=== PATIENT | female | born 1985 | race Two or more races ===

== ENCOUNTER 2019-07-02 03:51 | Emergency (ER) | payer MEDICAID ==
[~2019-07-02] VITALS: Ht 160 cm; Wt 78.0 kg
[2019-07-02] MEDS ORDERED: ondansetron 4mg rapidly disintigrating tab PO ONE (04:30)
[2019-07-02 04:59] LABS: BASOPHILS % (AUTO) 0.3 % (0-1); EOSINOPHILS # (AUTO) 0.1 X10'3 (0-0.9); EOSINOPHILS % (AUTO) 1.2 % (0-6); HEMATOCRIT 40.7 % (35.0-45.0); HEMOGLOBIN 14.1 g/dl (12.0-16.0); LYMPHOCYTES # (AUTO) 1.8 X10'3 (1.1-4.8); LYMPHOCYTES % (AUTO) 18.2 % (21-51); MEAN CORPUSCULAR HEMOGLOBIN 30.8 PG (27.0-31.0); MEAN CORPUSCULAR HGB CONC 34.6 g/dL (33.0-36.5); MEAN CORPUSCULAR VOLUME 88.9 FL (78-98); MEAN PLATELET VOLUME 7.7 FL (7.4-10.4); MONOCYTES # (AUTO) 0.4 X10'3 (0-0.9); MONOCYTES % (AUTO) 3.9 % (2-12); NEUTROPHILS # (AUTO) 7.5 X10'3 (1.8-7.7); NEUTROPHILS % (AUTO) 76.4 % (42-75); PLATELET COUNT 236 X10'3 (140-440); RED BLOOD COUNT 4.58 X10'6 (4.20-5.60); RED CELL DISTRIBUTION WIDTH 14.3 % (11.5-14.5); WHITE BLOOD COUNT 9.9 X10'3 (4.5-11.0)
[2019-07-02 05:13] LABS: CLARITY,URINE CLEAR (Clear); COLOR,URINE YELLOW (Yellow); GLUCOSE, URINE NEGATIVE (Neg); KETONES,URINE NEGATIVE (Neg); LEUKOCYTE ESTERASE ,URINE NEGATIVE (Neg); NITRITES, URINE NEGATIVE (Neg); OCCULT BLOOD,URINE NEGATIVE (Neg); PROTEIN,URINE NEGATIVE (Neg); UA COLLECTION TYPE CLN CATCH MIDSTREAM; UROBILINOGEN,URINE 0.2 E.U/dL (0.2-1.0)
[2019-07-02 05:21] LABS: ALANINE AMINOTRANSFERASE 30 U/L (12-78); ALBUMIN 3.8 G/DL (3.4-5.0); ALBUMIN/GLOBULIN RATIO 1.4 (1.1-1.5); ALKALINE PHOSPHATASE 66 IU/L (46-116); ANION GAP 7 (8-16); ASPARTATE AMINO TRANSFERASE 17 U/L (10-37); BILIRUBIN,TOTAL 0.5 MG/DL (0.1-1.0); BLOOD UREA NITROGEN 14 MG/DL (7-18); BUN/CREATININE RATIO 21.9 (6.6-38.0); CALCIUM 8.4 MG/DL (8.5-10.1); CHLORIDE 106 MMOL/L (99-107); CREATININE 0.64 MG/DL (0.40-0.90); GLUCOSE 96 MG/DL (70-104); POTASSIUM 3.5 MMOL/L (3.5-5.1); SODIUM 139 MMOL/L (135-145); TOTAL CARBON DIOXIDE 25.7 MMOL/L (24-32); TOTAL PROTEIN 6.5 G/DL (6.4-8.2); eGFR > 90 ML/MIN
[2019-07-02] MEDS ORDERED: ONDA8TAB6 PO (05:25)
[2019-07-02 05:32] VITALS: BP 106/62
== END 2019-07-02 05:34 | disposition home or self-care (01) ==
LOC: ER 03:52
DX: E86.0 Dehydration (principal); B34.9 Viral infection, unspecified; J45.909 Unspecified asthma, uncomplicated; F12.90 Cannabis use, unspecified, uncomplicated; Z56.0 Unemployment, unspecified
CPT/HCPCS: 36415; 80053; 81003; 83735; 85025; 99283

== ENCOUNTER 2021-07-18 16:42 | Emergency (ER) | payer MEDICAID ==
[~2021-07-18] VITALS: Ht 160 cm; Wt 81.8 kg
[~2021-07-18 16:42] MED LIST: ONDA8TAB6 PO
[2021-07-18 17:05] VITALS: BP 125/83
== END 2021-07-18 22:31 | disposition home or self-care (01) ==
LOC: ER 16:43
DX: M25.572 Pain in left ankle and joints of left foot (principal); J45.909 Unspecified asthma, uncomplicated; F12.90 Cannabis use, unspecified, uncomplicated; Z72.89 Other problems related to lifestyle; Z79.899 Other long term (current) drug therapy
CPT/HCPCS: 73610; 93971; 99284

== ENCOUNTER 2022-06-08 15:49 | Emergency (ER) | payer MEDICAID ==
[~2022-06-08] VITALS: Ht 160 cm; Wt 80.0 kg
[2022-06-08 15:54] VITALS: BP 123/78
== END 2022-06-08 18:28 | disposition left against medical advice (07) ==
LOC: ER 15:49
DX: J00 Acute nasopharyngitis [common cold] (principal); Z53.21 Procedure and treatment not carried out due to patient leaving prior to being seen by health care provider

== ENCOUNTER 2022-08-06 01:33 | Emergency (ER) | payer MEDICAID ==
[~2022-08-06] VITALS: Ht 160 cm; Wt 83.3 kg
[2022-08-06 01:50] VITALS: BP 130/84
[2022-08-06] MEDS ORDERED: ketorolac trometh inj. 60 MG/2 ML VIAL IM ONE (04:10)
[2022-08-06] MEDS ORDERED: acetaminophen 325mg tablet PO ONE (04:10)
[2022-08-06] MEDS ORDERED: ACET-812 PO (04:11)
[2022-08-06] MEDS ORDERED: LIDO700A32 TOP (04:11)
[2022-08-06] MEDS ORDERED: IBUP-1984 PO (04:11)
== END 2022-08-06 04:30 | disposition home or self-care (01) ==
LOC: ER 01:34
DX: M54.2 Cervicalgia (principal); J45.909 Unspecified asthma, uncomplicated; F12.90 Cannabis use, unspecified, uncomplicated; Z72.89 Other problems related to lifestyle; Z79.899 Other long term (current) drug therapy; W18.39XA Other fall on same level, initial encounter; Y93.89 Activity, other specified; Y92.89 Other specified places as the place of occurrence of the external cause; Y99.8 Other external cause status
CPT/HCPCS: 96372; 99283; J1885

== ENCOUNTER 2023-11-04 20:04 | Emergency (ER) | payer MEDICAID ==
[~2023-11-04] VITALS: Ht 162.6 cm; Wt 90.0 kg
[~2023-11-04 20:04] MED LIST changes: +ACET-812 PO; +LIDO700A32 TOP
[2023-11-04 20:27] VITALS: BP 125/71; PULSE 102; TEMP 98; O2SAT 98
[2023-11-04 21:35] LABS: STREP A SCREEN NEGATIVE (Neg)
[2023-11-04] MEDS ORDERED: ketorolac trometh inj. 60 MG/2 ML VIAL IM ONE (21:40)
[2023-11-04] MEDS ORDERED: AMOX-580 PO (21:52)
[2023-11-04] MEDS: dexamethasone sod phosphate 10mg/ml inj PO STA (21:55)
[2023-11-04 22:09] VITALS: RESP 17
[2023-11-04] MEDS: ketorolac trometh. 30mg/ml inj. IM ONE (22:09)
== END 2023-11-04 22:13 | disposition home or self-care (01) ==
LOC: ER 20:05
DX: J03.90 Acute tonsillitis, unspecified (principal); J45.909 Unspecified asthma, uncomplicated; F12.90 Cannabis use, unspecified, uncomplicated; Z72.89 Other problems related to lifestyle; Z79.899 Other long term (current) drug therapy
CPT/HCPCS: 87081; 87880; 96372; 99283; J1100; J1885

== ENCOUNTER 2024-02-14 16:26 | Emergency (ER) | payer MEDICAID ==
[~2024-02-14] VITALS: Ht 162.6 cm; Wt 80.0 kg
[2024-02-14] MEDS: ketorolac trometh 15mg/ml vial 15 MG/ML ML IM ONE (17:43)
[2024-02-14 17:45] VITALS: BP 129/74; PULSE 79; RESP 16; TEMP 98.3; O2SAT 98
== END 2024-02-14 17:46 | disposition home or self-care (01) ==
LOC: ER 16:27
DX: M25.462 Effusion, left knee (principal); J45.909 Unspecified asthma, uncomplicated; F12.90 Cannabis use, unspecified, uncomplicated; Z79.1 Long term (current) use of non-steroidal anti-inflammatories (NSAID); Z79.899 Other long term (current) drug therapy
CPT/HCPCS: 73564; 96372; 99283; J1885

== ENCOUNTER 2024-09-13 21:06 | Emergency (ER) | payer MEDICAID ==
[~2024-09-13] VITALS: Ht 160 cm; Wt 81.8 kg
[2024-09-13 21:53] VITALS: TEMP 98.3
[2024-09-13 23:25] VITALS: BP 123/85; PULSE 79; RESP 16; O2SAT 99
== END 2024-09-13 23:28 | disposition home or self-care (01) ==
LOC: ER 21:07
DX: L52 Erythema nodosum (principal); J45.909 Unspecified asthma, uncomplicated; F12.90 Cannabis use, unspecified, uncomplicated; Z88.8 Allergy status to other drugs, medicaments and biological substances
CPT/HCPCS: 99282